=== PATIENT | female | born 2000 | race African-American/Black ===

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

== ENCOUNTER 2022-02-25 02:56 | Inpatient (IN) ==
[~2022-02-25 02:56] MED LIST: Buffered Lidocaine 1% SYRIN 1 ml INTRADERM ONE
[2022-02-25] MEDS ORDERED: Buffered Lidocaine 1% SYRIN 1 ml INTRADERM ONE (03:52)
[2022-02-25] MEDS ORDERED: Lactated Ringers 1000 ml BAG 1,000 ML IV ONE (03:52)
[2022-02-25] MEDS ORDERED: Lactated Ringers 1000 ml BAG 1,000 ML IV SCH ×2 (04:00→06:00)
[2022-02-25 04:29] LABS: ABS Basophils 0.1 10^3/ul (0-0.2); ABS Eosinophils 0.1 10^3/ul (0-0.6); ABS Lymphocytes 2.3 10^3/ul (1.0-4.8); ABS Monocytes 0.8 10^3/ul (0-0.8); Eosinophil % 0.8 %; Hematocrit 35 % (35-47); Hemoglobin 11.3 g/dL (12.0-16.0); Lymphocyte % 27.5 %; Mean Corpuscular HGB Conc 32 g/dL (31-36); Mean Corpuscular Hemoglobin 31 pg (27-31); Mean Corpuscular Volume 94 fL (80-97); Mean Platelet Volume 11.5 fL (7.4-10.4); Nucleated Red Blood Cells % 0.1; Platelet Count 167 10^3/uL (150-450); Red Cell Distribution Width 14 % (10-15); White Blood Count 8.2 10^3/uL (3.5-10.8)
[2022-02-25] MEDS ORDERED: Witch Hazel PAD JAR TOPICAL PRN (05:25)
[2022-02-25] MEDS ORDERED: Glycerin ADULT 2.4 gm SUPP PR PRN (05:25)
[2022-02-25] MEDS: Dibucaine 1% OINT 28.35 GM TUBE PR PRN (06:15)
[2022-02-25 09:48] LABS: Urine Benzodiazepine Screen None Detected (None Detect); Urine Cannabinoids Screen None Detected (None Detect); Urine Opiates Screen None Detected (None Detect)
[2022-02-26 07:21] LABS: ABS Eosinophils 0.1 10^3/ul (0-0.6); ABS Monocytes 0.7 10^3/ul (0-0.8); ABS Neutrophils 5.1 10^3/ul (1.5-7.7); Eosinophil % 1.1 %; Hematocrit 36 % (35-47); Hemoglobin 11.6 g/dL (12.0-16.0); Lymphocyte % 25.2 %; Mean Corpuscular HGB Conc 32 g/dL (31-36); Mean Corpuscular Hemoglobin 31 pg (27-31); Mean Corpuscular Volume 95 fL (80-97); Mean Platelet Volume 11.1 fL (7.4-10.4); Platelet Count 152 10^3/uL (150-450); Red Blood Count 3.78 10^6 /uL (3.70-4.87); Red Cell Distribution Width 13 % (10-15); White Blood Count 7.9 10^3/uL (3.5-10.8)
[2022-02-26] MEDS: Dibucaine 1% OINT 28.35 GM TUBE PR PRN (17:29)
[2022-02-27 10:56] VITALS: BP 112/63
[2022-02-27] MEDS ORDERED: Varicella Virus Vaccine Live 0.5 ML VIAL SUBCUT ONE (11:30)
== END 2022-02-27 11:28 | disposition home or self-care (01) | DRG 560 ==
LOC: MCHOBOUT 02:56 → MCHOB 03:36
PROVIDERS: ADMIT Midwife; ATTEND Midwife